=== PATIENT | male | born 2000 | race Caucasian/White ===

== ENCOUNTER 2022-09-23 20:14 | Emergency (ER) | payer BC, MEDICAID ==
[~2022-09-23] VITALS: Ht 165.1 cm; Wt 76.0 kg
[2022-09-23 20:19] VITALS: BP 130/76
== END 2022-09-23 23:33 | disposition left against medical advice (07) ==
LOC: ER 20:14
DX: Z53.21 Procedure and treatment not carried out due to patient leaving prior to being seen by health care provider (principal)

== ENCOUNTER 2022-10-13 05:19 | Emergency (ER) | payer MEDICAID ==
[~2022-10-13] VITALS: Ht 162.6 cm; Wt 76.0 kg
[2022-10-13 05:31] VITALS: BP 123/68
== END 2022-10-13 09:42 | disposition home or self-care (01) ==
LOC: ER 05:19
DX: Z00.00 Encounter for general adult medical examination without abnormal findings (principal); J45.909 Unspecified asthma, uncomplicated; V49.49XA Driver injured in collision with other motor vehicles in traffic accident, initial encounter; Y93.89 Activity, other specified; Y92.89 Other specified places as the place of occurrence of the external cause; Y99.8 Other external cause status
CPT/HCPCS: 99281

== ENCOUNTER 2023-05-27 19:31 | Emergency (ER) | payer MEDICAID ==
[~2023-05-27] VITALS: Ht 165.1 cm; Wt 72.0 kg
[2023-05-27 20:11] VITALS: BP 122/59; RESP 18; TEMP 97.9; O2SAT 100
[2023-05-27 20:12] VITALS: PULSE 112
[2023-05-27] MEDS ORDERED: LIDOCAINE HCL/PF 1% 10 MG/ML 5ML VIAL INFIL ONE (22:45)
[2023-05-27] MEDS ORDERED: TETANUS, DIPHTHERIA, PERTUSSIS VAC/PF 0.5ML (>10YR OLD) IM ONE (22:45)
[2023-05-27] MEDS ORDERED: BACITRACIN ZINC OINT UDPKT TOP ONE (22:45)
[2023-05-27] MEDS ORDERED: BO1 TP (22:56)
== END 2023-05-27 23:58 | disposition home or self-care (01) ==
LOC: ER 19:31
DX: S61.212A Laceration without foreign body of right middle finger without damage to nail, initial encounter (principal); J45.909 Unspecified asthma, uncomplicated; X58.XXXA Exposure to other specified factors, initial encounter; Y93.89 Activity, other specified; Y92.89 Other specified places as the place of occurrence of the external cause; Y99.8 Other external cause status
CPT/HCPCS: 90715; 90471; 99283; Z7610

== ENCOUNTER 2023-05-30 18:43 | Emergency (ER) | payer MEDICAID ==
[~2023-05-30] VITALS: Ht 165.1 cm; Wt 73.0 kg
[~2023-05-30 18:43] MED LIST: BO1 TP
[2023-05-30 19:10] VITALS: BP 119/68; PULSE 99; RESP 16; TEMP 98.6; O2SAT 99
== END 2023-05-30 21:25 | disposition home or self-care (01) ==
LOC: ER 18:43
DX: S61.211D Laceration without foreign body of left index finger without damage to nail, subsequent encounter (principal); J45.909 Unspecified asthma, uncomplicated; X58.XXXD Exposure to other specified factors, subsequent encounter
CPT/HCPCS: 99281

== ENCOUNTER 2024-01-05 23:34 | Emergency (ER) | payer MEDICAID ==
[~2024-01-05] VITALS: Ht 165.1 cm; Wt 78.0 kg
[2024-01-05 23:52] VITALS: BP 113/79; TEMP 98.5
[2024-01-06 00:19] LABS: BASOPHILS % 0.2 % (0.0-2.0); EOSINOPHILS % 3.3 % (0.0-5.0); HEMATOCRIT. 43.5 % (42.0-52.0); HEMOGLOBIN. 15.5 g/dL (14.0-18.0); LYMPHOCYTES % 20.5 % (20.0-50.0); MEAN CORPUSCULAR HEMOGLOBIN 32.3 pg (28.0-32.0); MEAN CORPUSCULAR HGB CONC 35.6 g/dL (31.0-37.0); MEAN CORPUSCULAR VOLUME 90.8 fL (80.0-94.0); MEAN PLATELET VOLUME 8.3 fl (7.4-10.4); MONOCYTES % 6.8 % (2.0-8.0); NEUTROPHILS % 69.2 % (40.0-76.0); PLATELET 254 x1000/uL (130-400); RED BLOOD CELL COUNT 4.79 mill/uL (4.7-6.1); RED CELL DISTRIBUTION WIDTH 12.9 % (11.6-14.6); WHITE BLOOD COUNT 12.2 x1000/uL (4.5-11.0)
[2024-01-06 00:24] LABS: CHLORIDE 106 mEq/L (98-107); POTASSIUM 3.6 mEq/L (3.5-5.1); SODIUM 139 mEq/L (136-145)
[2024-01-06 00:25] LABS: CARBON DIOXIDE 26 mEq/L (21-32)
[2024-01-06 00:26] LABS: CALCIUM 9.7 mg/dL (8.7-10.4)
[2024-01-06 00:30] LABS: CREATININE 0.9 mg/dL (0.6-1.3)
[2024-01-06 00:31] LABS: GLUCOSE 110 mg/dL (70-105); UREA NITROGEN BLOOD 8 mg/dL (9-23)
[2024-01-06 00:35] LABS: TROPONIN I HIGH SENSITIVITY < 4 ng/L (3.0-53)
[2024-01-06] MEDS ORDERED: ALBU18HF2 IH (02:19)
[2024-01-06] MEDS ORDERED: P50 MT (02:19)
[2024-01-06] MEDS: PREDNISONE 20MG TABLET PO ONE (02:30)
[2024-01-06] MEDS: ALBUTEROL (0.083%) 2.5MG/3ML NEB HHN ONE (02:30)
[2024-01-06] MEDS: ALBUTEROL (0.083%) 2.5MG/3ML NEB HHN NR (03:10)
[2024-01-06 03:14] VITALS: PULSE 80; RESP 22; O2SAT 96
== END 2024-01-06 03:18 | disposition home or self-care (01) ==
LOC: ER 23:34
DX: J45.901 Unspecified asthma with (acute) exacerbation (principal)
CPT/HCPCS: 80048; 85025; 84484; 36415; 99283; 94640; J7512; Z7610 ×3

== ENCOUNTER 2024-08-08 15:14 | Emergency (ER) | payer SELFPAY ==
[~2024-08-08] VITALS: Ht 165.1 cm; Wt 76.0 kg
[~2024-08-08 15:14] MED LIST changes: +ALBU18HF2 IH; +P50 MT
[2024-08-08 15:22] VITALS: O2SAT 100
[2024-08-08] MEDS ORDERED: MUPI1OIN4 TP (17:33)
[2024-08-08] MEDS ORDERED: BO1 TP (17:33)
[2024-08-08 17:42] VITALS: BP 106/76; PULSE 79; RESP 18; TEMP 37.00296; O2SAT 98
== END 2024-08-08 17:53 | disposition home or self-care (01) ==
LOC: ER 15:14
DX: K13.0 Diseases of lips (principal); J45.909 Unspecified asthma, uncomplicated
CPT/HCPCS: 99283